=== PATIENT | female | born 1995 ===

== ENCOUNTER 2021-04-28 12:52 | Emergency (ER) | payer OTHER, SELFPAY ==
--- NOTE | ~2021-04-28 | US_ITS ---
EXAMINATION: US VENOUS ULTRASOUND WITH DOPPLER LOWER EXTREMITY, LEFT CLINICAL INFORMATION: Rule out DVT, swelling COMPARISON: None TECHNIQUE: Ultrasound of the deep veins is performed from the hip to the calf with compression sonography and color and pulse Doppler assessment. Spectral analysis with color-flow imaging is performed. FINDINGS: There is normal venous compression and respiratory variation and augmented flow. The visualized common femoral vein, superficial femoral vein, profunda femoral vein, popliteal vein, and the trifurcation region shows no evidence of deep venous thrombosis. There is no significant popliteal fossa cyst. There are multiple small lymph nodes in the left groin. If the patient's symptoms persist, followup ultrasound in 5 days 7 days might be of value to exclude proximal propagation from a non-visualized calf vein. US/US venous duplex LE LT IMPRESSION: No DVT demonstrated in the left lower extremity.
--- NOTE | ~2021-04-28 | XR_ITS ---
EXAMINATION: XR KNEE, LEFT CLINICAL INFORMATION: Pain and swelling post fall COMPARISON: None TECHNIQUE: Four views of the left knee. FINDINGS: Moderate knee effusion. Lateral soft tissue swelling. Normal alignment. No fracture, dislocation or acute osseous abnormalities are seen. XR/XR knee LT 4V IMPRESSION: Moderate knee effusion and soft tissue swelling. No fracture or dislocation is seen.
[2021-04-28 13:02] VITALS: BP 119/79; PULSE 130; RESP 18; TEMP 36.6; O2SAT 98; BMI 18.8
[2021-04-28 13:17] VITALS: PULSE 111; O2SAT 98
--- NOTE | 2021-04-28 13:18 | PC.NURSE ---
recheck hr 111, 02 sat 98% on r/a. pt is lalughing, smiling, eating chips and talking with her sister in w/c in waiting room.
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
[2021-04-28] MEDS: 0.9 % Sodium Chloride 1,000 ML 999 ML IVCONT ×2 (13:54→15:24)
[2021-04-28] MEDS: LORazepam 2 MG/ML VIAL 1 MG IVPUSH (14:01)
[2021-04-28 14:02] LABS: MANUAL DIFF FLAG NO
[2021-04-28] MEDS: Lidocaine HCl 1 % MPF 5 ML VIAL SUBCUT (14:03)
[2021-04-28] MEDS: Lidocaine/Epineph/Tetracaine 3 ML GEL.PF.APP TOPICAL (14:03)
[2021-04-28 14:05] LABS: Basophils Percent Auto 0.2 % (0-2); Eosinophils Absolute Auto 0.3 X10*3/uL (0.0-0.4); Eosinophils Percent Auto 1.4 % (0-4); Hematocrit 40.7 % (37-47); Hemoglobin 13.4 g/dl (12.0-16.0); Imm Gran Abs Auto 0.14 X10*3/uL (0.00-0.03); Imm Gran Pct Auto 0.8 % (0.0-0.4); Lymphocytes Absolute Auto 2.2 X10*3/uL (1.2-4.9); Lymphocytes Percent Auto 12.2 % (20-40); Mean Corpuscular HGB Conc 32.9 g/dl (31.0-35.0); Mean Corpuscular Hemoglobin 29.7 pg (27.0-33.0); Mean Corpuscular Volume 90.2 fL (80-98); Mean Platelet Volume 9.4 fL (9.4-12.3); Monocytes Absolute Auto 1.1 X10*3/uL (0.1-1.2); Monocytes Percent Auto 6.1 % (2-11); Neutrophils Absolute Auto 14.2 X10*3/uL (2.0-8.3); Neutrophils Percent Auto 79.3 % (45-73); Platelet Count 626 X10*3/uL (160-400); Red Blood Count 4.51 X10*6/uL (4.20-5.50); Red Cell Distribution Width 13.8 % (11.0-16.0); White Blood Count 17.9 X10*3/uL (4.8-10.8)
[2021-04-28 14:12] LABS: INTERNATIONAL NORM RATIO 1.3 (0.9-1.1); Prothrombin Time 14.5 SEC (9.9-13.0)
[2021-04-28 14:26] LABS: Alanine Aminotransferase 15 U/L (0-31); Alkaline Phosphatase 95 U/L (39-117); Anion Gap 17 (12-20); Aspartate Amino Transferase 12 U/L (5-31); Bilirubin Direct 0.2 mg/dL (0.0-0.5); Bilirubin Total 0.6 mg/dL (0.0-1.0); Blood Urea Nitrogen 7 mg/dL (9-16); Calcium 9.4 mg/dL (8.4-10.2); Carbon Dioxide 23 mmol/L (22-29); Chloride 104 mmol/L (96-108); Creatinine Clr Calc Pharmacy 113.9; Estimated Glomerular Filt Rate > 60; Glucose Random 93 mg/dL (60-115); Magnesium 2.3 mg/dL (1.6-2.6); Potassium 4.1 mmol/L (3.3-5.1); Sodium 140 mmol/L (135-145); Total Protein 7.7 g/dL (6.5-8.0)
[2021-04-28 14:27] LABS: COVID-19 Test Negative (Negative); IDNOW Serial# 9DD0AD1C
[2021-04-28 14:44] LABS: Lactic Acid 1.4 mmol/L (0.5-2.0)
[2021-04-28] MEDS: Clindamycin Phosphate/D5W 900 MG/50 ML PIGGYBACK 50 MG IV (15:14)
[2021-04-28] MEDS: Piperacillin Sodium/Tazobactam 3.375 GM in 0.9 % Sodium Chloride 50 ML IV (15:18)
[2021-04-28 15:19] LABS: C Reactive Protein 14.02 mg/dL (< or = 0.50)
[2021-04-28 15:47] VITALS: BP 130/79; PULSE 106; RESP 16; O2SAT 99
[2021-04-28] MEDS: vancomycin HCL 750 MG in 0.9 % Sodium Chloride 250 ML 265 MG IV (15:47)
[2021-04-28 15:48] LABS: Erythrocyte Sedimentation Rate 81 MM/HR (0-20)
[2021-04-28] MEDS: oxyCODONE HCl Immed Release 5 MG TABLET PO (16:15)
--- NOTE | 2021-04-28 16:54 | PC.NURSE ---
ATTEMPTED TO CALL [facility] FOR REPORT ON PATIENT TRANSFER NO ANSWER ON ATTEMPTED CALL PATIENT LEFT VIA EMS APPROXIMATELY [id number]
[2021-05-02 21:22] LABS: Lyme Abs Screen <0.90 index
== END 2021-04-28 16:59 | disposition short-term general hospital (02) ==
PROVIDERS: Emergency Provider Emergency Medicine; PCP Hospitalist
DX: M60.862 Other myositis, left lower leg (principal); D72.829 Elevated white blood cell count, unspecified; R79.82 Elevated C-reactive protein (CRP); F41.9 Anxiety disorder, unspecified; Z20.822 Contact with and (suspected) exposure to COVID-19
CPT/HCPCS: 36415; 73564; 80048; 80076; 82550; 83605; 83735; 85025; 85610; 85652; 85730; 86140; 86617; 86618; 87040; 87476; 87635; 93971; 96361; 96365; 96368; 96375; 99285; 99291; J2060; J2543; J3370

== ENCOUNTER → 2021-09-10 09:35 | Outpatient (BNVA) | payer OTHER, SELFPAY | PROVIDERS: PCP Hospitalist; Visit Provider Advanced Practice Midwife | DX: Z32.01 Encounter for pregnancy test, result positive (principal) | CPT/HCPCS: 81025; 99202 ==

== ENCOUNTER 2021-09-22 14:40 | Outpatient (REF) | payer OTHER, SELFPAY ==
--- NOTE | ~2021-09-22 | US_ITS ---
EXAMINATION: ULTRASOUND OB LIMITED CLINICAL INFORMATION: Positive test. Unknown LMP. COMPARISON: None TECHNIQUE: Transabdominal OB ultrasound FINDINGS: There is a single viable intrauterine fetus in cephalic position. heart rate is 158 bpm. There is an anterior placenta. measurements: BPD 3.6 cm suggesting gestational age 17 weeks 2 days OFD 4.7 cm suggesting gestational age 17 weeks 2 days Head circumference 14 cm suggesting gestational age 17 weeks 2 days Abdominal circumference 10.9 cm suggesting gestational age 16 weeks 6 days Femur length 2.3 cm suggesting gestational age 17 weeks 1 day. From today's measurements, gestational age is estimated at 17 weeks 1 day with estimated date of delivery of 03/01/2022. Dedicated survey was not performed. The maternal ovaries are normal. There is no fluid in the maternal pelvis. US/US OB limited IMPRESSION: Single viable intrauterine fetus. From today's measurements, gestational age is estimated at 17 weeks 1 day with estimated date of delivery of 03/13/2022.
== END 2021-09-22 14:41 | disposition home or self-care (01) ==
LOC: HO.US 14:40
PROVIDERS: PCP Hospitalist; Visit Provider Advanced Practice Midwife
DX: Z32.01 Encounter for pregnancy test, result positive (principal)
CPT/HCPCS: 76815

== ENCOUNTER → 2021-09-23 13:35 | Outpatient (BNVA) | payer OTHER, SELFPAY | PROVIDERS: PCP Hospitalist; Visit Provider Advanced Practice Midwife | DX: O99.322 Drug use complicating pregnancy, second trimester (principal); F12.20 Cannabis dependence, uncomplicated; Z3A.17 17 weeks gestation of pregnancy; Z87.891 Personal history of nicotine dependence; Z83.3 Family history of diabetes mellitus | CPT/HCPCS: 99212 ==

== ENCOUNTER 2021-10-03 09:02 | Outpatient (REF) | payer OTHER, SELFPAY ==
--- NOTE | ~2021-10-03 | US_ITS ---
EXAMINATION: US OBSTETRICAL CLINICAL INFORMATION: 26-year-old at 18.5 weeks of gestation Screening for anomaly COMPARISON: 04/28/2021 TECHNIQUE: Real-time transabdominal ultrasound was performed using C1-5 megahertz transducer. FINDINGS: A single, active, fetus is seen in breech presentation. The placenta is anterior without previa, and the amniotic fluid volume is wnl. MEASUREMENTS: 1. Biparietal Diameter: 3.84 cm; 17.5 wks 2. Occipital Frontal Diameter: 5.2 cm 3. Head Circumference: 14.5 cm; 17.5 wks 4. Abdominal Circumference: 12.1 cm; 17.6 wks 5. Femur Length: 2.5 cm; 17.5 wks 6. Humerus Length: 2.4 cm; 17.4 wks 7. Tibia Length: 2.1 cm; 17.4 wks 8. Ulna Length: 2.2 cm; 17.5 wks 9. Lateral ventricle: 0.73 cm 10. Cerebellum: 1.85 cm; 19.2 wks 11. Cisterna Magna: 0.29 cm 12. Nuchal Fold: 3.52 mm 13. Heart Rate: 147 beats per minute Rt ovary: normal Lt ovary: normal Cervical length 4.6 cm on T/A. GESTATIONAL AGE: 1. Established GA: 18.5 wks 2. GA from [facility]: 17.6 wks ESTIMATED DATE OF DELIVERY: 1. Established MICHELLE: 03/01/2022 2. MICHELLE from [facility]: 03/07/2022 ANATOMY: The visualized anatomy includes but not limited to: 1. Cranium: Normal 2. Intracranial anatomy: cavum septum pellucidi, lateral ventricles, choroid plexus, cerebellum, posterior fossa, third and fourth ventricles. 3. face: orbits, lip/palate, profile, nasal bone 4. Heart: four-chamber view of the heart, ventricular septum, foramen ovale, pulmonary vein, left and right outflow tracts, three-vessel view, 3 vessel trachea view, aortic and ductal arches, situs.. 5. Diaphragm: Normal 6. Abdominal wall: Normal 7. Cord Insertion: Normal 8. Spine: Cervical, thoracic, lumbar, sacral. 9. Stomach: Normal size and shape 10. Right Kidney: Normal 11. Left Kidney: Normal 12. 3 vessel cord: Normal 13. Upper extremity: Open hands, fifth digit. 14. Lower extremity: Tibia, fibula, bilateral feet. 15. Bladder: Normal 16. Genitalia: Female, patient aware US/US OB /maternal detail IMPRESSION: 1. Single, living, intrauterine with appropriate biometry. 2. Normal survey DISCUSSION: I reviewed today's ultrasound findings. We discussed the limitations of ultrasound in diagnosing aneuploidy and other congenital abnormalities. I reviewed the differences between screening test and diagnostic test. Amniocentesis was discussed and declined. She was informed that the baseline incidence of congenital abnormalities is approximately 3-5%. Not all these conditions are diagnosable in utero. RECOMMENDATIONS: 1. No further follow-up is been scheduled. Thank you for allowing me to participate in her care. Total time 20 minutes. The time spent was devoted to counseling the patient about the disease and diagnosis, coordinating care including reviewing her records, pertinent lab data and studies, as well as discussing diagnostic evaluation and workup, plan therapeutic interventions and future disposition of care. This includes any additional research needed to obtain further information in formulating the plan of care of this patient. This note was generated with a voice recognition program. Please excuse any errors which may have been overlooked during my review of this note. Sometimes these errors may affect the content or meaning of a given sentence.
== END 2021-10-03 09:03 | disposition home or self-care (01) ==
LOC: HO.US 09:02
PROVIDERS: PCP Hospitalist; Visit Provider Advanced Practice Midwife
DX: Z32.01 Encounter for pregnancy test, result positive (principal)
CPT/HCPCS: 76811

== ENCOUNTER 2021-10-08 11:02 | Outpatient (REF) | payer OTHER, SELFPAY ==
[2021-10-09 03:16] LABS: CT PCR DETECTED (Not Detect.); NG PCR NOT DETECTED (Not Detect.)
[2021-10-09 11:06] LABS: BV Int Neg Control Negative (Negative); BV Int Pos Control Positive (Positive)
== END 2021-10-08 11:03 | disposition home or self-care (01) ==
LOC: HO.LAB 11:02
PROVIDERS: PCP Hospitalist; Visit Provider Advanced Practice Midwife
DX: Z34.92 Encounter for supervision of normal pregnancy, unspecified, second trimester (principal); Z43.1 Encounter for attention to gastrostomy; Z87.891 Personal history of nicotine dependence; Z83.3 Family history of diabetes mellitus; Z3A.19 19 weeks gestation of pregnancy
CPT/HCPCS: 87480; 87491; 87510; 87591; 87660; 88142; 99212

== ENCOUNTER 2021-10-11 10:28 | Emergency (ER) | payer OTHER, SELFPAY ==
[2021-10-11 10:34] VITALS: BP 115/70; PULSE 93; RESP 17; TEMP 36.6; O2SAT 99; BMI 20.8
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
[2021-10-11] MEDS: Azithromycin 500 MG TABLET 1000 MG PO (13:14)
[2021-10-11] MEDS: cefTRIAXone sodium 500 MG VIAL IM (13:20)
== END 2021-10-11 13:23 | disposition home or self-care (01) ==
PROVIDERS: Emergency Provider Emergency Medicine; PCP Hospitalist
DX: O98.312 Other infections with a predominantly sexual mode of transmission complicating pregnancy, second trimester (principal); A56.8 Sexually transmitted chlamydial infection of other sites; Z3A.20 20 weeks gestation of pregnancy
CPT/HCPCS: 96372; 99283; 99284; J0696

== ENCOUNTER → 2021-11-07 10:52 | Outpatient (BNVA) | payer OTHER, SELFPAY | PROVIDERS: PCP Hospitalist; Visit Provider Advanced Practice Midwife | DX: O98.812 Other maternal infectious and parasitic diseases complicating pregnancy, second trimester (principal); A74.9 Chlamydial infection, unspecified; O99.322 Drug use complicating pregnancy, second trimester; F12.90 Cannabis use, unspecified, uncomplicated; Z3A.23 23 weeks gestation of pregnancy; Z83.3 Family history of diabetes mellitus; Z87.891 Personal history of nicotine dependence | CPT/HCPCS: 81003; 99212 ==

== ENCOUNTER 2021-11-10 14:08 | Outpatient (REF) | payer OTHER, SELFPAY ==
[2021-11-10 14:43] LABS: Hematocrit 37.6 % (37.0-47.0); Hemoglobin 12.9 g/dl (12.0-16.0); Mean Corpuscular HGB Conc 34.3 g/dl (31.0-35.0); Mean Corpuscular Hemoglobin 31.1 pg (27.0-33.0); Mean Corpuscular Volume 90.6 fL (80.0-98.0); Mean Platelet Volume 10.6 fL (9.4-12.3); Platelet Count 235 X10*3/uL (160-400); Red Blood Count 4.15 X10*6/uL (4.20-5.50); Red Cell Distribution Width 13.4 % (11.0-16.0); White Blood Count 12.5 X10*3/uL (4.8-10.8)
[2021-11-10 15:30] LABS: Syphilis Screen Nonreactive (Nonreactive)
[2021-11-10 15:33] LABS: Amphetamine Screen Urine Not Detected (Not Detect); Barbiturates, Urine Not Detected (Not Detect); Benzodiazepines Screen Urine Not Detected (Not Detect); Cannabinoid Screen Urine POSITIVE (Not Detect); Cocaine Screen Urine Not Detected (Not Detect); Fentanyl, urine Not Detected (Not Detect); Opiate Screen Urine Not Detected (Not Detect); Phencyclidine Screen Urine Not Detected (Not Detect)
[2021-11-11 04:26] LABS: HIV AB/AG Nonreactive (Nonreactive); HIV Num 1 0.07 S/CO (0.00-0.99); ~HepC Num1 0.15 S/CO (0.00-0.79); ~Hepatitis C Antibody Nonreactive (Nonreactive)
[2021-11-11 04:28] LABS: HBsAGNum1 0.24 S/CO (0.00-0.99); Hepatitis B Surface Antigen Negative (Negative)
[2021-11-11 21:02] LABS: Rubella IgG Antibody 2.73 Index
== END 2021-11-10 14:09 | disposition home or self-care (01) ==
LOC: HO.LAB 14:08
PROVIDERS: PCP Hospitalist; Visit Provider Advanced Practice Midwife
DX: Z32.01 Encounter for pregnancy test, result positive (principal); O23.40 Unspecified infection of urinary tract in pregnancy, unspecified trimester; N39.0 Urinary tract infection, site not specified; B96.89 Other specified bacterial agents as the cause of diseases classified elsewhere; Z67.41 Type O blood, Rh negative; Z3A.00 Weeks of gestation of pregnancy not specified
CPT/HCPCS: 80307; 85027; 86762; 86780; 86787; 86803; 86850; 86900; 86901; 87086; 87340; 87389

== ENCOUNTER 2021-12-09 13:05 | Outpatient (REF) | payer OTHER, SELFPAY ==
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
== END 2021-12-09 13:06 | disposition home or self-care (01) ==
LOC: HO.SH 13:05
PROVIDERS: Visit Provider Hospitalist
DX: Z01.118 Encounter for examination of ears and hearing with other abnormal findings (principal); H90.A12 Conductive hearing loss, unilateral, left ear with restricted hearing on the contralateral side
CPT/HCPCS: 92557; 92567

== ENCOUNTER → 2021-12-17 08:44 | Outpatient (BNVA) | payer OTHER, SELFPAY | PROVIDERS: Visit Provider Advanced Practice Midwife | DX: Z34.03 Encounter for supervision of normal first pregnancy, third trimester (principal); Z3A.29 29 weeks gestation of pregnancy | CPT/HCPCS: 81003; 99212 ==

== ENCOUNTER 2021-12-31 09:52 | Outpatient (REF) | payer OTHER, SELFPAY ==
[2021-12-31 11:20] LABS: Hematocrit 36.6 % (37.0-47.0); Hemoglobin 12.3 g/dl (12.0-16.0); Mean Corpuscular HGB Conc 33.6 g/dl (31.0-35.0); Mean Corpuscular Hemoglobin 29.8 pg (27.0-33.0); Mean Corpuscular Volume 88.6 fL (80.0-98.0); Mean Platelet Volume 10.3 fL (9.4-12.3); Platelet Count 276 X10*3/uL (160-400); Red Blood Count 4.13 X10*6/uL (4.20-5.50); Red Cell Distribution Width 13.1 % (11.0-16.0); White Blood Count 13.3 X10*3/uL (4.8-10.8)
[2021-12-31 12:04] LABS: ~HepC Num1 0.12 S/CO (0.00-0.79); ~Hepatitis C Antibody Nonreactive (Nonreactive)
[2021-12-31 12:13] LABS: Syphilis Screen Nonreactive (Nonreactive)
[2021-12-31 13:00] LABS: HIV AB/AG Nonreactive (Nonreactive); HIV Num 1 0.08 S/CO (0.00-0.99); Hepatitis B Surface Antigen Negative (Negative)
[2021-12-31 16:31] LABS: CT PCR NOT DETECTED (Not Detect.); NG PCR NOT DETECTED (Not Detect.)
== END 2021-12-31 09:53 | disposition home or self-care (01) ==
LOC: HO.LAB 09:52
PROVIDERS: PCP Hospitalist; Visit Provider Advanced Practice Midwife
DX: O98.813 Other maternal infectious and parasitic diseases complicating pregnancy, third trimester (principal); Z3A.31 31 weeks gestation of pregnancy
CPT/HCPCS: 36415; 81003; 85027; 86780; 86803; 87340; 87389; 87491; 87591; 99212

== ENCOUNTER → 2022-01-16 10:35 | Outpatient (BNVA) | payer OTHER, SELFPAY | PROVIDERS: PCP Hospitalist; Visit Provider Advanced Practice Midwife | DX: O36.5930 Maternal care for other known or suspected poor fetal growth, third trimester, not applicable or unspecified (principal); Z23 Encounter for immunization | CPT/HCPCS: 90471; 90715; 99212 ==

== ENCOUNTER 2022-01-23 13:12 | Outpatient (REF) | payer OTHER, SELFPAY ==
--- NOTE | ~2022-01-23 | US_ITS ---
EXAMINATION: OBSTETRICAL ULTRASOUND, Follow up HISTORY: 26-year-old at 12.5 weeks of gestation Size less than dates COMPARISON: 10/03/2021 TECHNIQUE: Real time transabdominal imaging with color and M-mode Doppler. PRESENTATION: Vertex PLACENTA LOCATION: Anterior without previa AMNIOTIC FLUID: JARAD 10.6 cm MEASUREMENTS: 1. Biparietal Diameter: 8.3 cm; 33.2 wks 2. Head Circumference: 30.9 cm; 34.4 wks 3. Abdominal Circumference: 29.1 cm; 23.1 wks 4. Femur Length: 6.4 cm; 33.1 wks 5. Heart Rate: 143 beats per minute WEIGHT: EFW: 2158 grams (4 lbs 12 oz) -- 12 %. BIOPHYSICAL PROFILE: Motion: 2 Tone: 2 Breathin Amniotic Fluid: 2 Total score: 8/8 UA Doppler: S/D2.5 GESTATIONAL AGE: 1. Established GA: 34.5 wks 2. GA from AUA: 33.4 wks ESTIMATED DATE OF DELIVERY: 1. Established MICHELLE: 03/01/2022 2. MICHELLE from AUA: 03/09/2022 US/US OB velocimetry umbilical ar IMPRESSION: 1. A single active fetus is in vertex presentation 2. Size equals dates (EFW 12%) 3. Reassuring biophysical profile 4. Normal SD ratio in the umbilical artery. I reviewed today's findings and the limitations of ultrasound and estimating weights. The majority of the fetuses EFW is close to or below the 10th percentile are constitutionally small but healthy fetuses who are growing to their full genetic potential. Approximately 30% may be experiencing placental insufficiency. Often it can be difficult to distinguish the 2 in utero. I informed her that interval growth evaluation will be helpful in determining whether the fetus is constitutionally small or experiencing growth restriction. testing is reassuring. According to patient, she was a small baby and weight: 5 pounds at full-term. A 3 week follow-up the has been scheduled. Thank you very much for this referral. Total time 30 minutes. The time spent was devoted to counseling the patient about the disease and diagnosis, coordinating care including reviewing her records, pertinent lab data and studies, as well as discussing diagnostic evaluation and workup, plan therapeutic interventions and future disposition of care. This includes any additional research needed to obtain further information in formulating the plan of care of this patient. This note was generated with a voice recognition program. Please excuse any errors which may have been overlooked during my review of this note. Sometimes these errors may affect the content or meaning of a given sentence.
== END 2022-01-23 13:13 | disposition home or self-care (01) ==
LOC: HO.US 13:12
PROVIDERS: PCP Hospitalist; Visit Provider Advanced Practice Midwife
DX: O36.5990 Maternal care for other known or suspected poor fetal growth, unspecified trimester, not applicable or unspecified (principal)
CPT/HCPCS: 76816; 76820

== ENCOUNTER 2022-02-02 14:04 | Outpatient (REF) | payer OTHER, SELFPAY ==
[2022-02-03 05:54] LABS: CT PCR NOT DETECTED (Not Detect.)
[2022-02-03 05:55] LABS: NG PCR NOT DETECTED (Not Detect.)
== END 2022-02-02 14:05 | disposition home or self-care (01) ==
LOC: HO.LAB 14:04
PROVIDERS: Visit Provider Advanced Practice Midwife
DX: Z01.419 Encounter for gynecological examination (general) (routine) without abnormal findings (principal); O26.843 Uterine size-date discrepancy, third trimester; O98.813 Other maternal infectious and parasitic diseases complicating pregnancy, third trimester; O99.333 Smoking (tobacco) complicating pregnancy, third trimester; A74.9 Chlamydial infection, unspecified; F17.210 Nicotine dependence, cigarettes, uncomplicated; Z3A.36 36 weeks gestation of pregnancy
CPT/HCPCS: 81003; 87081; 87147; 87491; 87591; 99212

== ENCOUNTER → 2022-02-11 13:58 | Outpatient (BNVA) | payer OTHER, SELFPAY | PROVIDERS: Visit Provider Advanced Practice Midwife | DX: O09.33 Supervision of pregnancy with insufficient antenatal care, third trimester (principal); O26.843 Uterine size-date discrepancy, third trimester; O99.343 Other mental disorders complicating pregnancy, third trimester; F32.A Depression, unspecified; O99.323 Drug use complicating pregnancy, third trimester; F12.90 Cannabis use, unspecified, uncomplicated; Z3A.37 37 weeks gestation of pregnancy; Z87.891 Personal history of nicotine dependence | CPT/HCPCS: 99212 ==

== ENCOUNTER 2022-02-13 13:09 | Outpatient (REF) | payer OTHER, SELFPAY ==
--- NOTE | ~2022-02-13 | US_ITS ---
EXAMINATION: OBSTETRICAL ULTRASOUND, Follow up HISTORY: 26-year-old at 37.5 weeks of gestation growth restriction COMPARISON: 01/23/2022 TECHNIQUE: Real time transabdominal imaging with color and M-mode Doppler. PRESENTATION: Vertex PLACENTA LOCATION: Anterior without previa AMNIOTIC FLUID: JARAD 10.1 cm MEASUREMENTS: 1. Biparietal Diameter: 8.8 cm; 35.4 wks 2. Head Circumference: 32.4 cm; 36.6 wks 3. Abdominal Circumference: 31.3 cm; 35.2 wks 4. Femur Length: 6.9 cm; 35.2 wks 5. Heart Rate: 138 beats per minute WEIGHT: EFW: 2668 grams (5 lbs 14 oz) -- 10 %. BIOPHYSICAL PROFILE: Motion: 2 Tone: 2 Breathin Amniotic Fluid: 2 Total score: 8/8 UA Doppler showed SD ratio of 2.4 GESTATIONAL AGE: 1. Established GA: 37.5 wks 2. GA from AUA: 35.6 wks ESTIMATED DATE OF DELIVERY: 1. Established MICHELLE: 03/01/2022 2. MICHELLE from AUA: 03/14/2022 US/US OB velocimetry umbilical ar IMPRESSION: 1. A single active fetus is in vertex presentation 2. Size equals dates, EFW 10% 3. Reassuring BPP and JARAD 4. Normal SD ratio in the umbilical artery I reviewed today's findings. Although the EFW corresponds to 10th percentile, compared to the prior exam, there has been appropriate interval growth. I reviewed the limitations of ultrasound and estimating weights. testing is reassuring. Continue with the weekly monitoring and expectant management until approximately 39 weeks of gestation. Thank you very much for this referral. Total time 20 minutes. The time spent was devoted to counseling the patient about the disease and diagnosis, coordinating care including reviewing her records, pertinent lab data and studies, as well as discussing diagnostic evaluation and workup, plan therapeutic interventions and future disposition of care. This includes any additional research needed to obtain further information in formulating the plan of care of this patient. This note was generated with a voice recognition program. Please excuse any errors which may have been overlooked during my review of this note. Sometimes these errors may affect the content or meaning of a given sentence.
== END 2022-02-13 13:10 | disposition home or self-care (01) ==
LOC: HO.US 13:09
PROVIDERS: Visit Provider Advanced Practice Midwife
DX: O26.843 Uterine size-date discrepancy, third trimester (principal); O98.913 Unspecified maternal infectious and parasitic disease complicating pregnancy, third trimester; Z3A.37 37 weeks gestation of pregnancy
CPT/HCPCS: 76816; 76820

== ENCOUNTER → 2022-02-17 09:39 | Outpatient (BNVA) | payer OTHER, SELFPAY | PROVIDERS: Visit Provider Advanced Practice Midwife | DX: O36.5930 Maternal care for other known or suspected poor fetal growth, third trimester, not applicable or unspecified (principal); Z3A.38 38 weeks gestation of pregnancy | CPT/HCPCS: 59025; 81003; 99212 ==

== ENCOUNTER 2022-02-20 09:26 | Outpatient (REF) | payer OTHER, SELFPAY ==
--- NOTE | ~2022-02-20 | US_ITS ---
EXAMINATION: US OBSTETRICAL (BIOPHYSICAL PROFILE) CLINICAL INFORMATION: 26-year-old at 37.5 weeks of gestation FGR COMPARISON: 02/13/2022 TECHNIQUE: Biophysical profile is performed over 30 minutes with assessment of breathing, gross body movement, tone, and qualitative amniotic fluid volume. FINDINGS: POSITION: Cephalic PLACENTA: Anterior without previa AMNIOTIC FLUID INDEX: 11.1 cm CARDIAC ACTIVITY: 143 beats per minute BIOPHYSICAL PROFILE: Motion: 2 Tone: 2 Breathin Amniotic Fluid: 2 The total biophysical score is 8/8 UA Doppler: S/D2.6 US/US OB biophysical profile IMPRESSION: 1. Single intrauterine gestation in vertex position. 2. Reassuring BPP and JARAD 3. Normal SD ratio in the UA I reviewed today's findings and gave her reassurance. She is to return next week for an interval growth evaluation. Plan for delivery at approximately 39-40 weeks. Thank you for allowing me to participate in her care. Total time 20 minutes. The time spent was devoted to counseling the patient about the disease and diagnosis, coordinating care including reviewing her records, pertinent lab data and studies, as well as discussing diagnostic evaluation and workup, plan therapeutic interventions and future disposition of care. This includes any additional research needed to obtain further information in formulating the plan of care of this patient. This note was generated with a voice recognition program. Please excuse any errors which may have been overlooked during my review of this note. Sometimes these errors may affect the content or meaning of a given sentence.
--- NOTE | ~2022-02-20 | US_ITS ---
EXAMINATION: US OBSTETRICAL (BIOPHYSICAL PROFILE) CLINICAL INFORMATION: 26-year-old at 37.5 weeks of gestation FGR COMPARISON: 02/13/2022 TECHNIQUE: Biophysical profile is performed over 30 minutes with assessment of breathing, gross body movement, tone, and qualitative amniotic fluid volume. FINDINGS: POSITION: Cephalic PLACENTA: Anterior without previa AMNIOTIC FLUID INDEX: 11.1 cm CARDIAC ACTIVITY: 143 beats per minute BIOPHYSICAL PROFILE: Motion: 2 Tone: 2 Breathin Amniotic Fluid: 2 The total biophysical score is 8/8 UA Doppler: S/D2.6 US/US OB velocimetry umbilical ar IMPRESSION: 1. Single intrauterine gestation in vertex position. 2. Reassuring BPP and JARAD 3. Normal SD ratio in the UA I reviewed today's findings and gave her reassurance. She is to return next week for an interval growth evaluation. Plan for delivery at approximately 39-40 weeks. Thank you for allowing me to participate in her care. Total time 20 minutes. The time spent was devoted to counseling the patient about the disease and diagnosis, coordinating care including reviewing her records, pertinent lab data and studies, as well as discussing diagnostic evaluation and workup, plan therapeutic interventions and future disposition of care. This includes any additional research needed to obtain further information in formulating the plan of care of this patient. This note was generated with a voice recognition program. Please excuse any errors which may have been overlooked during my review of this note. Sometimes these errors may affect the content or meaning of a given sentence.
== END 2022-02-20 09:27 | disposition home or self-care (01) ==
LOC: HO.US 09:26
PROVIDERS: Visit Provider Advanced Practice Midwife
DX: O26.843 Uterine size-date discrepancy, third trimester (principal); Z3A.37 37 weeks gestation of pregnancy
CPT/HCPCS: 76819; 76820

== ENCOUNTER 2022-04-10 12:21 | Outpatient (REF) | payer OTHER, SELFPAY ==
[2022-04-11 10:22] LABS: CT PCR NOT DETECTED (Not Detect.); NG PCR NOT DETECTED (Not Detect.)
[2022-04-11 10:27] LABS: BV Int Neg Control Negative (Negative); BV Int Pos Control Positive (Positive)
== END 2022-04-10 12:22 | disposition home or self-care (01) ==
LOC: HO.LAB 12:21
PROVIDERS: Visit Provider Advanced Practice Midwife
DX: N89.8 Other specified noninflammatory disorders of vagina (principal); Z20.2 Contact with and (suspected) exposure to infections with a predominantly sexual mode of transmission
CPT/HCPCS: 87480; 87491; 87510; 87591; 87660; 99212

== ENCOUNTER 2022-09-05 04:59 | Emergency (ER) | payer OTHER, SELFPAY ==
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
[2022-09-05] MEDS: LORazepam 1 MG TABLET 2 MG PO (05:10)
[2022-09-05 05:24] VITALS: BP 111/71; PULSE 80; RESP 18; O2SAT 97; BMI 18.9
[2022-09-05] MEDS: diphenhydrAMINE HCL 50 MG/ML VIAL IM (05:45)
[2022-09-05] MEDS: Haloperidol Lactate 5 MG/ML VIAL IM (05:45)
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
--- OUTSIDE RECORDS SUMMARY | 2022-09-05 06:02 | XMS_ITS | Continuity of Care Document ---
:1995 Author Organization [facility] Address [address] [place] [address]- Care Team Providers Name Role Phone Not on Staff, PCP Primary Care Physician Unavailable Encounter [facility] Date(s): 03/11/20 - 03/27/[address] [address]- [facility] Encounter Diagnosis Head injury with skull fracture (Final) - 03/11/20 Fracture of mandible, multiple sites (Final) - 03/11/20 Discharge Disposition: Disch/Trans to IP Rehab or unit w/in Hos Attending Physician: Brian Davila MD Admitting Physician: Brian Davila MD Referring Physician: Not on Staff, Referring MD Allergies, Adverse Reactions, Alerts Substance Reaction Severity Status NKA Active Medications aspirin 81 mg oral tablet, chewable 81 mg, 1, tablet, G Tube, Daily, Refills 0, Maintenance, 03/27/20 14:14:00 EDT Start Date: 03/27/20 Status: OrderedBacitracin Topical Oint 1 applicator, Topically, 2 times a day, 0 Refills, Maintenance, Ointment Start Date: 03/27/20 Status: Orderedbisacodyl 10 mg rectal suppository 1 supp = 10 mg, Rectally, 2 times a day, PRN Constipation, 0 Refills, Maintenance, 03/27/20 14:15:00EDT, Suppository Start Date: 03/27/20 Status: OrderedcloNIDine 0.1 mg oral tablet 0.1 mg, 1, tablet, By Mouth, Every 6 hours, Refills 0, Maintenance, 03/27/20 14:15:00 EDT Start Date: 03/27/20 Status: OrdereddiphenhydrAMINE 25 mg oral tablet 1 tablet = 25 mg, By Mouth, Every 4 hours, PRN Itch, 0 Refills, Maintenance, 03/27/20 14:15:00 EDT, Tablet Start Date: 03/27/20 Status: Ordereddocusate sodium 150 mg/15 ml oral liquid 10 mL = 100 mg, By Mouth, 2 times a day, PRN Constipation, 0 Refills, Maintenance, 03/27/20 14:15:00EDT, Liquid Start Date: 03/27/20 Status: OrderedDuoneb Inhalation Solution 1, vials, Neb, 4 times a day, Refills 0, Maintenance, 03/27/20 14:14:00 EDT, Inhalation Solution Start Date: 03/27/20 Status: Orderedfolic acid 1 mg oral tablet 1 mg, 1, tablet, G Tube, Daily, Refills 0, Maintenance, 03/27/20 14:15:00 EDT Start Date: 03/27/20 Status: Orderedibuprofen 600 mg oral tablet 400 mg, 0.6666, tablet, G Tube, Every 6 hours, PRN, Refills 0, Maintenance, Pain , Severe, 03/27/20 14:15:00 EDT Start Date: 03/27/20 Status: Orderedmelatonin 10 mg oral tablet, disintegrating G Tube, Daily at bedtime, 0 Refills, Maintenance, 03/27/20 14:15:00 EDT, DIS Tablet Start Date: 03/27/20 Status: OrderedMilk of Magnesia Liquid 30 mL, By Mouth, 2 times a day, PRN Constipation, 0 Refills, Maintenance, 03/27/20 14:15:00 EDT, Suspension Start Date: 03/27/20 Status: OrderedMineral Oil /Petrolatum Ophth 1 applicator, Eyes, Both, Every 4 hours, 0 Refills, Maintenance, 03/27/20 14:15:00 EDT, Ophth Ointment Start Date: 03/27/20 Status: OrderedMultivitamin Tablet 1 tablet, G Tube, Daily, 0 Refills, Maintenance, 03/27/20 14:15:00 EDT, Tablet Start Date: 03/27/20 Status: OrderedPHENobarbital 30 mg oral tablet 2 tablet = 60 mg, G Tube, Every 12 hours, 0 Refills, Maintenance, 03/27/20 14:15:00 EDT, Tablet Start Date: 03/27/20 Status: Orderedthiamine 100 mg oral tablet 100 mg, 1, tablet, G Tube, Daily, Refills 0, Maintenance, 03/27/20 14:15:00 EDT Start Date: 03/27/20 Status: OrderedTobramycin 0.3% Ophth 1 drops, Eyes, Both, Every 4 hours, 0 Refills, Maintenance, 03/27/20 14:15:00 EDT, Ophth Solution Start Date: 03/27/20 Status: OrderedTylenol 325 mg oral tablet 650 mg, 2, tablet, By Mouth, Every 4 hours, Refills 0, Maintenance, 03/27/20 14:14:00 EDT Start Date: 03/27/20 Status: Ordered Procedures Procedure Date Related Diagnosis Body Site Status Bronchoscopy, rigid or flexible, 03/12/20 Completed including fluoroscopic guidance, when performed; with transendoscopic endobronchial ultrasound (EBUS) during bronchoscopic diagnostic or therapeutic intervention(s) for peripheral lesion(s) (List separately in addition to Results Orders for Microbiology Reports Name Date Lower Resp Tract Culture w/ Gram Smear 03/18/20 Blood Culture 03/18/20 Blood Culture #2 03/18/20 Microbiology Reports TEST:Blood Culture, Second Order STATUS:Auth (Verified) BODY SITE: SOURCE:Blood COLLECTED DATE/TIME:03/18/20 3:25 PMBlood Culture, Second Order SPECIMEN DESCRIPTION : BLOOD RT ARM SPECIAL REQUESTS : NONE CULTURE : NO GROWTH 5 DAYS. REPORT STATUS : FINAL 03/23/2020TEST:Lower Respiratory Tract Culture STATUS:Auth (Verified) BODY SITE: SOURCE:BAL (M COLLECTED DATE/TIME:03/18/20 2:15 PMLower Respiratory Tract Culture SPECIMEN DESCRIPTION : BAL (MINI) LUNGMB SPECIAL REQUESTS : NONE GRAM STAIN : NO CELLS OR ORGANISMS SEEN CULTURE : 16,000 CFU/ML ACINETOBACTER CALCOACETICUS BETHANY. ANITRATUS REPORT STATUS : FINAL 03/20/2020 ORGANISM 16,000 CFU/ML ACINETOBACTER CALCOACETICUS BETHANY. ANITRATUS METHOD MIN. INHIB. CONC. (MCG/ML) CEFEPIME SUSCEPTIBLE CEFTAZIDIME SUSCEPTIBLE CIPROFLOXACIN SUSCEPTIBLE GENTAMICIN SUSCEPTIBLE LEVOFLOXACIN SUSCEPTIBLE TRIMETH/SULFAMETHOX SUSCEPTIBLE MEROPENEM SUSCEPTIBLE TETRACYCLINE SUSCEPTIBLE AMPICILLIN/SULBACTAM SUSCEPTIBLETEST:Blood Culture STATUS:Auth (Verified) BODY SITE: SOURCE:Blood COLLECTED DATE/TIME:03/18/20 2:08 PMBlood Culture SPECIMEN DESCRIPTION : BLOOD NO SITE SPECIAL REQUESTS : NONE CULTURE : NO GROWTH 5 DAYS. REPORT STATUS : FINAL 03/23/2020Radiology Reports (Most Recent Ten) Exam Date Time Procedure Performing Provider Status 03/22/20 6:35 PM Abdomen AP Ileana Alberto; Auth (Verifi ed) Notes:(Abdomen AP) Reason For Exam: PainRESULT: XR Abdomen AP XR Abdomen AP Reason: Pain; Clinical Question(s): Free Air COMPARISON: None. FINDINGS: Gastrostomy with distal tip in stomach. Enteric contrast from previous modified barium swallow is seen throughout the large bowel. Normal bowel gas pattern. No abnormal stool retention. No abnormal calcifications. No acute bony abnormalities. IMPRESSION: Well-positioned PEG tube. Nonspecific nonobstructive bowel gas pattern. Free air cannot be excluded on a supine only study. WSN: [id number] Ordering Physician: Kandace Miller Dictated By: Leroy Toro MD Dictated Date/Time: 03/22/20 6:56 pm Reviewed By: Leroy Toro MD Signed By: Leroy Toro MD Signed Date/Time: 03/22/20 6:56 pm Transcribed By: SIXTO Transcribed Date/Time: 03/22/20 6:55 pm Exam Date Time Procedure Performing Provider Status 03/22/20 6:35 PM Chest Portable Ileana Alberto; Auth (Verifi ed) Notes:(Chest Portable) Reason For Exam: PostopRESULT: Chest Portable Chest Portable Reason: Postop; Clinical Question(s): Other:; free air COMPARISON: 03/21/2020 at 5:34 AM. FINDINGS: LINES AND TUBES: Interval placement of tracheostomy with cannula well-positioned at the thoracic inlet. LUNGS AND PLEURA: Low lung volumes with mild basilar atelectasis, right greater than left. Lungs are otherwise clear with no consolidation. No pleural effusion. No pneumothorax. HEART, MEDIASTINUM AND ARPAN: Heart is normal in size. Normal mediastinal and hilar contour. BONES AND SOFT TISSUES: No acute abnormality. No free air. IMPRESSION: Placement of tracheostomy. Low lung volumes with bibasilar atelectasis. No free air. WSN: [id number] Ordering Physician: Kandace Miller Dictated By: Leroy Toro MD Dictated Date/Time: 03/22/20 6:55 pm Reviewed By: Leroy Toro MD Signed By: Leory Toro MD Signed Date/Time: 03/22/20 6:55 pm Transcribed By: SIXTO Transcribed Date/Time: 03/22/20 6:53 pm Exam Date Time Procedure Performing Provider Status 03/22/20 2:14 PM Modified Barium Swallow W/ Shea Haynes L ; Auth (Verified) Speech (Radio Notes:(Modified Barium Swallow W/ Speech (Radio) Reason For Exam: Dysphagia;DysphagiaRESULT: Modified Barium Swallow W/ Speech (Radio Modified Barium Swallow W/ Speech (Radio with speech pathologist. CLINICAL INDICATION: Reason: Dysphagia COMPARISON: None Technique: Lateral cine-videofluoroscopy was performed by Yumiko Horan CNP during the oral administration of various barium containing consistencies. Pulsed fluoroscopy time: 2.1 minutes Dose Area Product (DAP): 98.9 uGy*m2 Findings: Thin barium:Subglottic aspiration with cough. [place]:Silent subglottic aspiration. Applesauce:Flash laryngeal penetration. Honey:Flash laryngeal penetration. Pudding:No laryngeal penetration or subglottic aspiration. IMPRESSION: Aspiration and penetration as described.. For dietary concerns or recommendations, please refer to speech pathologist report. By undersigning and finalizing the report, the attending radiologist confirms he/she has personally reviewed and interpreted the images and agrees with the description of the findings. I have personally reviewed the images and I agree with this report. WSN: [id number] Ordering Physician: Mojgan Amaya Dictated By: Yumiko Horan NP Dictated Date/Time: 03/22/20 2:46 pm Reviewed By: Anthony Henderson MD Signed By: Anthony Henderson MD Signed Date/Time: 03/22/20 2:51 pm Transcribed By: SIXTO Transcribed Date/Time: 03/22/20 2:18 pm Exam Date Time Procedure Performing Provider Status 03/21/20 6:08 AM Chest Portable Grodzicka , Alesia; Auth (Verifie d) Notes:(Chest Portable) Reason For Exam: FeverRESULT: Chest Portable Chest Portable AP semiupright 5:32 AM Reason: Fever COMPARISON: 03/19/2020 FINDINGS: LINES AND TUBES: Tracheostomy tube tip the mid trachea 3.3 cm from the freedom.. LUNGS AND PLEURA: Low lung volumes. Mild bibasilar opacities, likely atelectasis. No pleural effusion. No pneumothorax. HEART, MEDIASTINUM AND ARPAN: Heart is normal in size. Normal mediastinal and hilar contour. BONES AND SOFT TISSUES: Partially visualized right clavicular fracture. A gastrostomy tube noted in place in the upper abdomen. IMPRESSION: Mild bibasilar opacities, likely atelectasis. No pleural effusion or pneumothorax. I have personally reviewed the images and I agree with this report. WSN: [id number] Ordering Physician: Linus Mayes Dictated By: Giovanna Cervantes MD Dictated Date/Time: 03/21/20 8:23 am Reviewed By: Tiana Lau MD Signed By: Tiana Lau MD Signed Date/Time: 03/21/20 8:28 am Transcribed By: SIXTO Transcribed Date/Time: 03/21/20 7:20 am Exam Date Time Procedure Performing Provider Status 03/19/20 5:57 AM Chest Portable Alfonzoa Alesia; Auth (Verifie d) Notes:(Chest Portable) Reason For Exam: PostopRESULT: Chest Portable Chest Portable AP upright 5:24 AM Indication: follow-up postop. COMPARISON: 03/18/2020. FINDINGS: Multiple round lucent opacities over the patient's are noted, likely due to overlying cooling blanket which obscures detail. LINES AND TUBES: Thoracostomy tube tip at the thoracic, unchanged. Left subclavian central venous catheter tip at the lower SVC. LUNGS AND PLEURA: Low lung volumes with unchanged hazy bilateral airspace opacities. No pleural effusion. No pneumothorax. HEART, MEDIASTINUM AND ARPAN: Heart is normal in size. Normal mediastinal and hilar contour. BONES AND SOFT TISSUES: No acute abnormality. IMPRESSION: No significant change. I have personally reviewed the images and I agree with this report. WSN: [id number] Ordering Physician: Kandace Miller Dictated By: Giovanna Cervantes MD Dictated Date/Time: 03/19/20 7:45 am Reviewed By: Clyde Godfrey MD Signed By: Clyde Godfery MD Signed Date/Time: 03/19/20 7:50 am Transcribed By: SIXTO Transcribed Date/Time: 03/19/20 7:16 am Exam Date Time Procedure Performing Provider Status 03/18/20 3:09 PM Chest Portable Anibal Amaya (Verified ) Notes:(Chest Portable) Reason For Exam: Follow-Up Pleural EffusionRESULT: Chest Portable Chest Portable Reason: Follow-Up Pleural Effusion; Clinical Question(s): Pleural Effusion; Order Comment: 1400 COMPARISON: Multiple priors dating back to 03/16/2020 FINDINGS: LINES AND TUBES: Tracheostomy tube is in stable position. Left subclavian central venous catheter terminates in the central SVC. LUNGS AND PLEURA: The lungs are hypoinflated. Bilateral lower lung airspace opacities are slightly improved compared with most recent prior. No pleural effusion. No pneumothorax. HEART, MEDIASTINUM AND ARPAN: Heart is normal in size. Normal mediastinal and hilar contour. BONES AND SOFT TISSUES: Right midshaft clavicular fracture again identified. IMPRESSION: Mildly improved aeration in both lung bases. WSN: [id number] Ordering Physician: Kandace Miller Dictated By: Danielle Franco MD Dictated Date/Time: 03/18/20 3:53 pm Reviewed By: Danielle Franco MD Signed By: Danielle Franco MD Signed Date/Time: 03/18/20 3:53 pm Transcribed By: SIXTO Transcribed Date/Time: 03/18/20 3:51 pm Exam Date Time Procedure Performing Provider Status 03/18/20 5:38 AM Chest Portable Leila Churchill (Verified) Notes:(Chest Portable) Reason For Exam: PneumothoraxRESULT: Chest Portable Chest Portable Reason: Pneumothorax; Clinical Question(s): Pneumothorax COMPARISON: Chest x-ray 03/17/2020 and multiple priors. FINDINGS: LINES AND TUBES: Tracheostomy tube terminates 2.0 cm above the freedom. Left subclavian approach central line crosses midline and terminating in the mid SVC. A chest tube projects over the right diaphragmatic dome and is unchanged. The left chest tube is no longer visualized. LUNGS AND PLEURA: Hazy opacities at both lung bases are unchanged. No pleural effusion. No pneumothorax. HEART, MEDIASTINUM AND ARPAN: Heart is normal in size. Normal mediastinal and hilar contour. BONES AND SOFT TISSUES: No acute abnormality. IMPRESSION: 1. Left chest tube is no longer visualized. No pneumothorax. 2. Unchanged bibasilar lung opacities represent atelectasis and/or consolidation. I have personally reviewed the images and I agree with this report. WSN: [id number] Ordering Physician: Linus Mayes Dictated By: Vitaly Snyder DO Dictated Date/Time: 03/18/20 11:06 a Reviewed By: Gage Guevara MD Signed By: Gage Guevara MD Signed Date/Time: 03/18/20 11:11 am Transcribed By: SIXTO Transcribed Date/Time: 03/18/20 10:35 am Exam Date Time Procedure Performing Provider Status 03/17/20 6:08 AM Chest Portable Betty Duff; Rona ([facility] ed) Notes:(Chest Portable) Reason For Exam: Tube PlacementRESULT: Chest Portable Chest Portable Reason: Tube Placement COMPARISON: Chest x-ray 03/16/2020 and multiple priors. FINDINGS: LINES AND TUBES: Tracheostomy tube terminates approximately 2.5 cm above the freedom. Left subclavian approach central line terminates in the lower SVC. One chest tube projects over the left mid lung and another projects over the right upper quadrant either in the upper abdomen or lower right pleural space. These are both unchanged. LUNGS AND PLEURA: Faint hazy opacities at the lung bases may represent atelectasis. Prominence of the perihilar markings with mild peribronchial cuffing likely represents mild pulmonary edema. No pleural effusion. No pneumothorax. HEART, MEDIASTINUM AND ARPAN: Heart is normal in size. Normal mediastinal and hilar contour. BONES AND SOFT TISSUES: Unchanged minimum overriding displaced right clavicular fracture. IMPRESSION: 1. Bilateral pulmonary edema and right basilar atelectasis. 2. Lines and tubes unchanged as above. No pneumothorax. I have personally reviewed the images and I agree with this report. WSN: [id number] Ordering Physician: José Wolff Dictated By: Vitaly Snyder DO Dictated Date/Time: 03/17/20 9:54 am Reviewed By: Gage Guevara MD Signed By: Gage Guevara MD Signed Date/Time: 03/17/20 9:59 am Transcribed By: SIXTO Transcribed Date/Time: 03/17/20 9:53 am Exam Date Time Procedure Performing Provider Status 03/16/20 3:15 PM Chest Portable hCarles Jerez (Verified) Notes:(Chest Portable) Reason For Exam: Tube PlacementRESULT: Chest Portable Chest Portable at 2:59 PM Reason: Tube Placement COMPARISON: Chest x-ray 03/16/2020 at 4:56 AM and multiple priors. FINDINGS: LINES AND TUBES: r tracheostomy tube terminates approximately 2.2 cm above the freedom. Left subclavian approach central line tip terminates at the cavoatrial junction isn't is unchanged. Left chest tube projects over the left mid lung. An additional tube projects over the right upper quadrant and it is unclear whether this represents an abdominal drain or chest tube. What appears to be a gastrostomy tube projects over the left upper abdomen. LUNGS AND PLEURA: Bilateral patchy hazy lung opacities are unchanged. No pleural effusion. No pneumothorax. HEART, MEDIASTINUM AND ARPAN: Heart is normal in size. Normal mediastinal and hilar contour. BONES AND SOFT TISSUES: Known displaced overriding right clavicular fracture is incompletely visualized. IMPRESSION: Bilateral patchy lung opacities are unchanged. Lines and tubes unchanged as outlined above. I have personally reviewed the images and I agree with this report. WSN: [id number] Ordering Physician: Migdalia Daley Dictated By: Vitaly Snyder DO Dictated Date/Time: 03/16/20 4:13 pm Reviewed By: Gage Guevara MD Signed By: Gage Guevara MD Signed Date/Time: 03/16/20 4:18 pm Transcribed By: SIXTO Transcribed Date/Time: 03/16/20 4:00 pm Exam Date Time Procedure Performing Provider Status 03/16/20 5:40 AM Chest Portable Giancarlo Stroud (Verified ) Notes:(Chest Portable) Reason For Exam: Tube PlacementRESULT: Chest Portable Chest Portable AP semiupright Reason: Tube Placement; Clinical Question(s): Pneumothorax COMPARISON: 03/15/2020. FINDINGS: LINES AND TUBES: Again demonstrated is a tracheostomy tube with its tip 3.6 cm above the freeodm. There is a stable left central line with its tip overlying the expected location of the cavoatrial junction. Again seen is a left chest tube. Again seen is a tube overlying the right upper abdomen. LUNGS AND PLEURA: There are persistent bilateral patchy hazy lung opacities which does not appear significantly changed. No pleural effusion. No pneumothorax. HEART, MEDIASTINUM AND ARPAN: Heart is normal in size. Normal mediastinal and hilar contour. BONES AND SOFT TISSUES: Again seen is a displaced right clavicle fracture. IMPRESSION: Stable abnormal chest radiograph. WSN: [id number] Ordering Physician: Linus Mayes Dictated By: Marti Carey MD Dictated Date/Time: 03/16/20 6:53 am Reviewed By: Marti Carey MD Signed By: Marti Carey MD Signed Date/Time: 03/16/20 6:53 am Transcribed By: SIXTO Transcribed Date/Time: 03/16/20 6:50 am Vital Signs Most recent to oldest 1 2 3 [Reference Range]: Height 157 cm 157 cm 157 cm (03/27/20 12:00 PM) (03/27/20 8:25 AM) (03/27/20 3:43 AM) Weight 47.2 kg 47.3 kg 49.6 kg (03/27/20 5:33 AM) (03/25/20 5:35 AM) (03/24/20 6:32 AM) Oxygen Saturation [94-100 %] 100 % 100 % 98 % (03/27/20 12:00 PM) (03/27/20 8:25 AM) (03/27/20 3:43 AM) Pulse Rate [55-90 bpm] 72 bpm 81 bpm 111 bpm (03/27/20 12:00 PM) (03/27/20 8:25 AM) *H* (03/27/20 3:43 AM) Body Mass Index [18.5-24.99] 20.89 (03/11/20 3:50 AM) Blood Pressure [90-138/55-84 117/69 mm Hg 115/66 mm Hg 127 /78 mm Hg mm Hg] (03/27/20 12:00 PM) (03/27/20 8:25 AM) (03/27/20 3:43 AM) Respiratory Rate [16-30 18 br/min 18 br/min 18 br/mi n br/min] (03/27/20 1:53 PM) (03/27/20 12:00 PM) (03/27/20 10:38 AM) Temperature [96.8-100.4 97.8 DegF 97.7 DegF 97.8 Deg F DegF] (03/27/20 12:00 PM) (03/27/20 8:25 AM) (03/27/20 3:43 AM) Liters per Minute 7 L/min 7 L/min 7 L/min (03/24/20 4:25 AM) (03/24/20 12:58 AM) (03/23/20 8: 00 PM) Mode of Delivery (Oxygen) Room air Room air Room a ir (03/27/20 12:00 PM) (03/27/20 8:25 AM) (03/27/20 3:43 AM) Blood pressure sites Arm, left Arm, left Arm, left (03/27/20 12:00 PM) (03/27/20 8:25 AM) (03/27/20 3:43 AM) Temperature Route Oral Oral Oral (03/27/20 12:00 PM) (03/27/20 8:25 AM) (03/27/20 3:43 AM) Dry Weight 50 kg 50 kg 50 kg (03/11/20 3:50 AM) (03/11/20 2:37 AM) (03/11/20 2:0 0 AM) Weight Obtained Via Standing scale Bed scale Bed scale (03/27/20 5:33 AM) (03/25/20 5:35 AM) (03/24/20 6:32 AM) Mobility assistance Independent Independent Total assist ance (03/22/20 10:00 AM) (03/22/20 8:00 AM) (03/20/20 12 :00 AM)
[2022-09-05 06:08] VITALS: BP 111/71; PULSE 80; RESP 18; TEMP 36.7; O2SAT 97
[2022-09-05 06:15] LABS: Urine Pregnancy NEGATIVE (NEGATIVE)
[2022-09-05 06:16] LABS: UPreg QC Valid YES
[2022-09-05 06:18] LABS: Amphetamine Screen Urine Not Detected (Not Detect); Barbiturates, Urine Not Detected (Not Detect); Benzodiazepines Screen Urine Not Detected (Not Detect); Cannabinoid Screen Urine POSITIVE (Not Detect); Cocaine Screen Urine Not Detected (Not Detect); Fentanyl, urine Not Detected (Not Detect); Opiate Screen Urine Not Detected (Not Detect); Phencyclidine Screen Urine Not Detected (Not Detect)
--- NOTE | 2022-09-05 06:19 | PC.NURSE ---
ZIGGY Dubon completed at this time.
[2022-09-05 06:20] LABS: COVID-19 Test Negative (Negative)
== END 2022-09-05 13:00 | disposition home or self-care (01) ==
PROVIDERS: Emergency Provider Emergency Medicine; PCP Hospitalist
DX: F10.920 Alcohol use, unspecified with intoxication, uncomplicated (principal); Y90.9 Presence of alcohol in blood, level not specified; R45.851 Suicidal ideations; R45.1 Restlessness and agitation; F17.210 Nicotine dependence, cigarettes, uncomplicated; F12.90 Cannabis use, unspecified, uncomplicated
CPT/HCPCS: 80307; 81025; 87635; 96372; 99283; 99285; J1200

== ENCOUNTER 2023-11-22 19:57 | Emergency (ER) | payer OTHER, SELFPAY ==
--- NOTE | ~2023-11-22 | XR_ITS ---
EXAMINATION: XR ANKLE, LEFT CLINICAL INFORMATION: Evaluate for fracture or dislocation COMPARISON: None available. TECHNIQUE: Two views of the left ankle. FINDINGS: Comminuted displaced spiral fracture of the distal fibula. Anterior dislocation of the distal tibia in relation to the talus. Vertically oriented fracture along the lateral malleolus/distal tibia. Disruption of ankle mortise along its superior margin. Joint spaces and alignment are otherwise maintained. Soft tissue swelling and deformity about the ankle. XR/XR ankle LT 2V IMPRESSION: 1. Comminuted displaced spiral fracture of the distal fibula. 2. Anterior dislocation of the distal tibia in relation to the talus. 3. Vertically oriented fracture along the lateral malleolus/distal tibia. 4. Disruption of ankle mortise along its superior margin. 5. Soft tissue swelling and deformity about the ankle.
--- NOTE | ~2023-11-22 | XR_ITS ---
EXAMINATION: XR ANKLE, LEFT CLINICAL INFORMATION: Rule out talar calcaneal subluxation COMPARISON: X-rays from earlier the same day TECHNIQUE: Lateral view of the FINDINGS: Normal-appearing talar calcaneal alignment. Minimally displaced posterior malleolar fracture. Comminuted oblique fracture of the distal fibular shaft. Soft tissue swelling and ankle joint effusion. Overlying cast or splint. XR/XR ankle LT 2V IMPRESSION: Normal-appearing talar calcaneal alignment.
--- NOTE | ~2023-11-22 | XR_ITS ---
EXAMINATION: XR ANKLE, LEFT CLINICAL INFORMATION: Post reduction COMPARISON: Previous x-ray from earlier the same day TECHNIQUE: AP, lateral, and mortise views of the left ankle. FINDINGS: Improved alignment of the trimalleolar ankle fracture with normal tibial talar alignment. There is an ankle joint effusion and diffuse soft tissue swelling. There is an overlying cast or splint. XR/XR ankle LT 2V IMPRESSION: Improved alignment of the trimalleolar ankle fracture.
--- NOTE | 2023-11-22 20:01 | ECG_ITS ---
Test Reason : FALL Blood Pressure : / mmHG Vent. Rate : 079 BPM Atrial Rate : 079 BPM P-R Int : 118 ms QRS Dur : 080 ms QT Int : 400 ms P-R-T Axes : 056 068 020 degrees QTc Int : 458 ms Sinus rhythm with marked sinus arrhythmia Otherwise normal ECG When compared with ECG of 09-JUN-2013 14:51, No significant changes seen Referred By: Lore Valencia Electronically Signed By:CIERRA CRISTOBAL MD
[2023-11-22 20:07] VITALS: BP 142/98; BP 86/69; PULSE 120; PULSE 81; RESP 18; TEMP 36.4; O2SAT 99; BMI 18.5
[2023-11-22] MEDS: 0.9 % Sodium Chloride 1,000 ML 999 ML IVCONT (20:20)
[2023-11-22] MEDS: Morphine Sulfate 4 MG/ML CARTRIDGE IVPUSH (20:20)
[2023-11-22 20:23] VITALS: BP 131/81; PULSE 84; RESP 20; O2SAT 97
[2023-11-22 20:30] LABS: MANUAL DIFF FLAG NO
[2023-11-22 20:31] LABS: Basophils Absolute Auto 0.1 X10*3/uL (0.0-0.2); Basophils Percent Auto 0.6 % (0-2); Eosinophils Absolute Auto 0.4 X10*3/uL (0.0-0.4); Eosinophils Percent Auto 3.3 % (0-4); Hemoglobin 14.7 g/dl (12.0-16.0); Imm Gran Abs Auto 0.03 X10*3/uL (0.00-0.03); Imm Gran Pct Auto 0.3 % (0.0-0.4); Lymphocytes Absolute Auto 3.6 X10*3/uL (1.2-4.9); Lymphocytes Percent Auto 33.3 % (20-40); Mean Corpuscular Hemoglobin 30.4 pg (27.0-33.0); Mean Corpuscular Volume 86.8 fL (80.0-98.0); Mean Platelet Volume 9.9 fL (9.4-12.3); Monocytes Absolute Auto 0.8 X10*3/uL (0.1-1.2); Monocytes Percent Auto 7.7 % (2-11); Neutrophils Percent Auto 54.8 % (45-73); Platelet Count 305 X10*3/uL (160-400); Red Blood Count 4.84 X10*6/uL (4.20-5.50); Red Cell Distribution Width 13.1 % (11.0-16.0); White Blood Count 10.9 X10*3/uL (4.8-10.8)
[2023-11-22 20:35] VITALS: BP 125/75; PULSE 102; RESP 16; O2SAT 99
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
[2023-11-22 20:48] LABS: Anion Gap 15 (12-20); Blood Urea Nitrogen 13 mg/dL (9-16); Carbon Dioxide 20 mmol/L (22-29); Chloride 110 mmol/L (96-108); Creatinine Clr Calc Pharmacy 84.3; Estimated Glomerular Filt Rate > 60; Potassium 3.5 mmol/L (3.3-5.1); Sodium 141 mmol/L (135-145)
[2023-11-22 20:49] LABS: Alanine Aminotransferase 12 U/L (0-31); Albumin Level 4.5 g/dL (3.5-5.0); Alkaline Phosphatase 48 U/L (39-117); Aspartate Amino Transferase 13 U/L (5-31); Bilirubin Direct 0.3 mg/dL (0.0-0.5); Bilirubin Total 1.3 mg/dL (0.0-1.0); Calcium 9.3 mg/dL (8.4-10.2); Glucose Random 96 mg/dL (60-115); Total Protein 7.2 g/dL (6.5-8.0)
[2023-11-22 20:56] VITALS: BP 129/93; PULSE 107; RESP 14
[2023-11-22] MEDS: ondansetron HCL 4 MG/2 ML VIAL IVPUSH (20:56)
[2023-11-22 21:11] VITALS: BP 150/93; PULSE 81; RESP 24; O2SAT 99
[2023-11-22] MEDS: Ketamine HCl/NS 50 MG/5 ML SYRINGE 100 MG IVPUSH (21:11)
--- NOTE | 2023-11-22 22:31 | PC.NURSE ---
pt ambulated to bathroom on crutches with standby assist, tolerated well. provider notified.
--- NOTE | 2023-11-22 23:04 | PC.NURSE ---
hand off to sammy king
== END 2023-11-22 23:44 | disposition home or self-care (01) ==
PROVIDERS: Emergency Medicine; Emergency Provider Student in an Organized Health Care Education/Training Program
DX: S82.842A Displaced bimalleolar fracture of left lower leg, initial encounter for closed fracture (principal); S93.05XA Dislocation of left ankle joint, initial encounter; W00.1XXA Fall from stairs and steps due to ice and snow, initial encounter; Y93.89 Activity, other specified; Y92.014 Private driveway to single-family (private) house as the place of occurrence of the external cause; Y99.8 Other external cause status; M25.572 Pain in left ankle and joints of left foot; M25.472 Effusion, left ankle
CPT/HCPCS: 36415; 73600; 80048; 80076; 85025; 93005; 96361; 96374; 96375; 99284; 99285; J2270; J2405

== ENCOUNTER → 2023-11-22 20:01 | Outpatient (BNV) | payer OTHER, SELFPAY | PROVIDERS: Emergency Provider Student in an Organized Health Care Education/Training Program; Visit Provider Internal Medicine Cardiovascular Disease | DX: I49.8 Other specified cardiac arrhythmias (principal) | CPT/HCPCS: 93010 ==

== ENCOUNTER 2023-11-26 09:15 | Outpatient (AMB) | payer OTHER, SELFPAY ==
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
[2023-11-26 09:22] VITALS: BP 110/70; PULSE 82; O2SAT 98; BMI 19.9
== END 2023-11-26 10:04 | disposition home or self-care (01) ==
PROVIDERS: Visit Provider Nurse Practitioner Family
DX: S82.832A Other fracture of upper and lower end of left fibula, initial encounter for closed fracture (principal)
CPT/HCPCS: 99215

== ENCOUNTER 2023-11-26 10:46 | Outpatient (REF) | payer OTHER, SELFPAY ==
--- NOTE | ~2023-11-26 | XR_ITS ---
EXAMINATION: XR ANKLE, LEFT CLINICAL INFORMATION: Left ankle pain. Fracture. COMPARISON: Left ankle radiographs dated 11/22/2023. TECHNIQUE: AP, lateral, and mortise views of the left ankle. FINDINGS: Redemonstration of a trimalleolar fracture in near anatomic alignment with an overlying splint. No significant new bone/callus formation across the fracture lines. The ankle mortise appears well aligned. No concerning lytic or blastic osseous lesion. No abnormal soft tissue calcification. XR/XR ankle LT min 3V IMPRESSION: Trimalleolar fracture in near anatomic alignment with an overlying splint. No significant new bone/callus formation.
== END 2023-11-26 10:47 | disposition home or self-care (01) ==
LOC: HO.HOSX 10:46
PROVIDERS: Visit Provider Physician Assistant
DX: M25.572 Pain in left ankle and joints of left foot (principal); S82.852A Displaced trimalleolar fracture of left lower leg, initial encounter for closed fracture; S93.05XA Dislocation of left ankle joint, initial encounter; W00.0XXA Fall on same level due to ice and snow, initial encounter; Y93.E9 Activity, other interior property and clothing maintenance; Y92.9 Unspecified place or not applicable; Y99.9 Unspecified external cause status
CPT/HCPCS: 73610; 99202

== ENCOUNTER 2023-11-26 10:46 | Outpatient (AMB) | payer OTHER, SELFPAY ==
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
== END 2023-11-26 11:40 | disposition home or self-care (01) ==
PROVIDERS: Visit Provider Physician Assistant
DX: S82.852A Displaced trimalleolar fracture of left lower leg, initial encounter for closed fracture (principal); S93.05XA Dislocation of left ankle joint, initial encounter
CPT/HCPCS: 27816; 99204

== ENCOUNTER 2023-12-01 09:22 | Day surgery (SDC) | payer OTHER, SELFPAY ==
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
[2023-12-01] VITALS (8 sets, daily range): BP systolic 114–127; BP diastolic 55–82; PULSE 89–119; RESP 14–23; TEMP 37.1–37.4; O2SAT 98–100; BMI 18.9
--- NOTE | ~2023-12-01 | FL_ITS ---
EXAMINATION: XR FLUOROSCOPY WITH IMAGES CLINICAL INFORMATION: ORIF COMPARISON: 11/26/2023 TECHNIQUE: Fluoroscopy Supervised By: Gabi. Fluoroscopy Time: 0.6 seconds. Cumulative Dose: 1.28 mGy. Images: 4. FINDINGS: Intraoperative fluoroscopy provided, plate and multiple screws placed across fracture line of the distal fibula, 2 threaded screws through the medial malleolus. Anatomic alignments restored. FL/FL guidance in OR IMPRESSION: Intraoperative fluoroscopy for ORIF bimalleolar fractures.
[2023-12-01 09:44] LABS: UPreg QC Valid YES; Urine Pregnancy NEGATIVE (NEGATIVE)
[2023-12-01] MEDS: Lactated Ringers 1,000 ML 100 ML IVCONT (10:03)
--- NOTE | 2023-12-01 14:31 | MHC.SHP ---
Pre-Procedural Eval Section A - 24 Hr Update-Section A only Date of Service: 12/01/23 The patient is an INPATIENT: No Changes since office visit: No Cold of Flu in the past 2 weeks, No New Medical Problems, No Changes in Medication and No Patient answered all questions The patient has been examined within 24 hours of the surgical procedure. The History & Physical has been completed within 30 days and I have reviewed it.: Yes Section B - Complete if H&P > 30 days Chief Complaint: Displaced trimalleolar fracture of left lower leg, Allergies: Allergies Allergy/AdvReac Type Severity Reaction Status Date / Time No Known Allergies Allergy Verified 12/01/23 09:46 Plan I have reviewed the history and physical and performed a pertinent physical examination on my patient. No changes have occurred unless specified. Time Spent With Patient Time: Total time managing care of this patient today ____ minutes.
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
--- NOTE | 2023-12-01 16:07 | P.BOP_ITS ---
Brief Operative Note Date of Service: 12/01/23 Pre-op diagnosis: left ankle thor Post-op diagnosis: same Procedure: ORIF bimalleolar ankle fracture left Implants: [place] Surgeon: Pedrito Matta MD Anesthesia: GETA Was an Mail Carrier Technician used for this Procedure?: Yes Mail Carrier Technician: Torri Ashley Estimated blood loss (mL): 5 Tourniquet time (min): 56 IV fluids (mL): 800 Pathology: none sent Condition: stable Disposition: PACU
--- NOTE | 2023-12-08 07:18 | P.OP_ITS ---
Operative Note Operative Note Date of Service: 12/01/23 Narrative: Date of Service: 12/01/23 Pre-op diagnosis: left ankle thor Post-op diagnosis: same Procedure: ORIF bimalleolar ankle fracture left Implants: [place] Surgeon: Pedrito Matta MD Anesthesia: GETA Was an Medical Records Auditor used for this Procedure?: Yes Medical Records Auditor: Torri Ashley Estimated blood loss (mL): 5 Tourniquet time (min): 56 IV fluids (mL): 800 Pathology: none sent Condition: stable Disposition: PACU Procedure in detail: Patient was brought to the operating room and placed supine on the operative table. All bony prominences were well padded and a time-out was called to identify proper site proper procedure proper surgeon. IV antibiotics per weight were administered. I began by exsanguinating limb is slightly tourniquet to 300 mm Hg. I then made a standard posterolateral incision over the fibula. Full- thickness flaps were taken down to the fibular shaft and distal fibula. The fracture was identified and cleaned with a combination of curette, rongeur and irrigation. A lobster claw was used to provisionally reduce the fracture and a lag screw was placed from A to P to provisionally reduce the fracture. There was a large butterfly fragment that was not entirely reduceable. A 6 hole distal fibular locking plate was applied using standard AO technique. Biplanar fluoroscopy was used to confirm hardware position and fracture reduction. Once I was satisfied that both of these were acceptable I irrigated copiously and turned my attention to the medial side. This was an extra-articular medial malleolus fracture that exteded proximally and obliquely. In order to prevent any displacement 2 threaded K-wires were then placed from distal to proximal and perpendicular to the fracture. Biplanar fluoroscopy was used to confirm positioning and then they were overdrilled and 2 4.0 partially-threaded cannulated cancellous screws were placed across the fracture. I was satisfied with the position and the fracture reduction based on biplanar fluoroscopy. This syndesmosis was tested using external rotation test and was found to be stable. Therefore all instrumentation was removed and copious irrigation was performed. Absorbable suture and trino were used for closure and the patient was placed into sterile dressings and a well-padded posterior splint. Tourniquet was let down and the patient was extubated brought to recovery room in stable condition there were no known complications.
== END 2023-12-01 17:24 | disposition home or self-care (01) ==
LOC: HO.SSS 09:24
PROVIDERS: Nurse Practitioner; Visit Provider Orthopaedic Surgery
PROC: (CPT 27814; principal; 2023-12-01 15:10)
DX: S82.842A Displaced bimalleolar fracture of left lower leg, initial encounter for closed fracture (principal); R20.0 Anesthesia of skin; W00.1XXA Fall from stairs and steps due to ice and snow, initial encounter; Y93.89 Activity, other specified; Y92.099 Unspecified place in other non-institutional residence as the place of occurrence of the external cause; Y99.8 Other external cause status
CPT/HCPCS: 27814; 81025; C1713; J0690; J1100; J2250; J2405; J2704; J2795; J3010

== ENCOUNTER → 2023-12-01 09:22 | Outpatient (BNV) | payer OTHER, SELFPAY | PROVIDERS: Visit Provider Orthopaedic Surgery | DX: S82.842A Displaced bimalleolar fracture of left lower leg, initial encounter for closed fracture (principal) | CPT/HCPCS: 27814 ==

== ENCOUNTER 2023-12-09 11:37 | Outpatient (AMB) | payer OTHER, SELFPAY ==
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
[2023-12-09 11:41] VITALS: BMI 18.9
== END 2023-12-09 12:03 | disposition home or self-care (01) ==
PROVIDERS: Visit Provider Physician Assistant
DX: S82.842A Displaced bimalleolar fracture of left lower leg, initial encounter for closed fracture (principal); S93.05XD Dislocation of left ankle joint, subsequent encounter; Z87.81 Personal history of (healed) traumatic fracture
CPT/HCPCS: 29515; 99024

== ENCOUNTER → 2023-12-09 11:37 | Outpatient (BNVA) | payer OTHER, SELFPAY | PROVIDERS: Visit Provider Physician Assistant | DX: S82.852D Displaced trimalleolar fracture of left lower leg, subsequent encounter for closed fracture with routine healing (principal); S93.05XD Dislocation of left ankle joint, subsequent encounter; Z98.890 Other specified postprocedural states; Z87.81 Personal history of (healed) traumatic fracture | CPT/HCPCS: 29515; 99212 ==

== ENCOUNTER 2023-12-17 09:03 | Outpatient (REF) | payer OTHER, SELFPAY ==
--- NOTE | ~2023-12-17 | XR_ITS ---
EXAMINATION: XR ANKLE, LEFT CLINICAL INFORMATION: Pain in unspecified ankle and joints of unspecified foot. COMPARISON: Fluoroscopic guidance in OR images of 12/01/2023. Left ankle radiographs of 11/26/2023. TECHNIQUE: AP, lateral, and mortise views of the left ankle. FINDINGS: Status post ORIF of trimalleolar fracture with plate and multiple screws traversing fracture of the distal fibula and 2 threaded screws traversing fracture of the medial malleolus. Diffuse soft tissue swelling and joint effusion. Surgical trino present medially and laterally. Alignment is improved. XR/XR ankle LT min 3V IMPRESSION: Status post ORIF of trimalleolar fracture .
== END 2023-12-17 09:04 | disposition home or self-care (01) ==
LOC: HO.HOSX 09:03
PROVIDERS: Visit Provider Physician Assistant
DX: M25.572 Pain in left ankle and joints of left foot (principal)
CPT/HCPCS: 29405; 73610; 99212

== ENCOUNTER 2023-12-17 10:58 | Outpatient (AMB) | payer OTHER, SELFPAY ==
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
[2023-12-17 11:06] VITALS: BMI 18.9
== END 2023-12-17 12:10 | disposition home or self-care (01) ==
PROVIDERS: Visit Provider Physician Assistant
DX: S82.852A Displaced trimalleolar fracture of left lower leg, initial encounter for closed fracture (principal); Z87.81 Personal history of (healed) traumatic fracture; S93.05XD Dislocation of left ankle joint, subsequent encounter
CPT/HCPCS: 29405; 99024

== ENCOUNTER 2023-12-27 11:22 | Outpatient (REF) | payer OTHER, SELFPAY | END 2023-12-27 11:23 | disposition home or self-care (01) | LOC: HO.HOSX 11:22 | PROVIDERS: Visit Provider Physician Assistant | DX: Z13.89 Encounter for screening for other disorder (principal) ==

== ENCOUNTER 2024-01-03 09:54 | Outpatient (REF) | payer OTHER, SELFPAY ==
--- NOTE | ~2024-01-03 | XR_ITS ---
EXAMINATION: XR ankle LT min 3V CLINICAL INFORMATION: Reason for Exam M25.572 - Pain in left ankle and joints of left foot COMPARISON: 12/17/2023 TECHNIQUE: AP, lateral, and oblique views of the left foot FINDINGS: * Status post alanna of bimalleolar fracture without evidence of hardware complication. Ankle mortise is preserved. There is posterior displacement of the distal fibular comminuted fragment. * Joint spaces are maintained without significant degenerative change. * No soft tissue abnormality. XR/XR ankle LT min 3V IMPRESSION: Status post bimalleolar fracture without evidence of hardware complication. There is posterior displacement of the distal fibular comminuted fragment.
== END 2024-01-03 09:55 | disposition home or self-care (01) ==
LOC: HO.HOSX 09:54
PROVIDERS: Visit Provider Physician Assistant
DX: M25.572 Pain in left ankle and joints of left foot (principal); S82.852D Displaced trimalleolar fracture of left lower leg, subsequent encounter for closed fracture with routine healing; S93.05XD Dislocation of left ankle joint, subsequent encounter; X58.XXXD Exposure to other specified factors, subsequent encounter; Z98.890 Other specified postprocedural states
CPT/HCPCS: 29405; 73610; 99212

== ENCOUNTER 2024-01-03 15:00 | Outpatient (AMB) | payer OTHER, SELFPAY ==
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
[2024-01-03 15:29] VITALS: BMI 18.9
== END 2024-01-03 17:44 | disposition home or self-care (01) ==
PROVIDERS: Visit Provider Physician Assistant
DX: S82.842A Displaced bimalleolar fracture of left lower leg, initial encounter for closed fracture (principal); Z87.81 Personal history of (healed) traumatic fracture; S93.05XD Dislocation of left ankle joint, subsequent encounter
CPT/HCPCS: 29405; 99024

== ENCOUNTER 2024-01-17 10:57 | Outpatient (REF) | payer OTHER, SELFPAY ==
--- NOTE | ~2024-01-17 | XR_ITS ---
EXAMINATION: XR ANKLE, LEFT CLINICAL INFORMATION: Pain. COMPARISON: None available. TECHNIQUE: AP, lateral, and mortise views of the left ankle. FINDINGS: Oblique, displaced fractures of the bilateral malleoli noted, in stable alignment. A stable, somewhat displaced butterfly comminution fragment is noted at the distal fibular fracture site, best appreciated on the oblique view. Intact orthopedic screws are applied to the medial malleolus, and an intact fixator plate and fixator screws are applied to the lateral malleolus. No hardware failure or loosening is seen. The ankle mortise is intact. There is no left ankle joint effusion. Boehler's angle is normal. There is no calcaneal spur. No focal soft tissue swelling, gas or foreign body is seen. XR/XR ankle LT min 3V IMPRESSION: There is stable alignment of bimalleolar fracture fragments status-post ORIF. No hardware failure or loosening is seen.
== END 2024-01-17 10:58 | disposition home or self-care (01) ==
LOC: HO.HOSX 10:57
PROVIDERS: Visit Provider Physician Assistant
DX: M25.572 Pain in left ankle and joints of left foot (principal); Z98.890 Other specified postprocedural states; Z87.81 Personal history of (healed) traumatic fracture
CPT/HCPCS: 73610; 99212

== ENCOUNTER 2024-01-17 13:37 | Outpatient (AMB) | payer OTHER, SELFPAY ==
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
[2024-01-17 14:01] VITALS: BMI 18.9
== END 2024-01-17 14:44 | disposition home or self-care (01) ==
PROVIDERS: Visit Provider Physician Assistant
DX: Z98.890 Other specified postprocedural states (principal); Z87.81 Personal history of (healed) traumatic fracture
CPT/HCPCS: 99024

== ENCOUNTER 2024-02-21 08:36 | Outpatient (REF) | payer OTHER, SELFPAY ==
--- NOTE | ~2024-02-21 | XR_ITS ---
EXAMINATION: XR ANKLE, LEFT CLINICAL INFORMATION: Pain in left ankle COMPARISON: 01/17/2024, 01/03/2024, 11/26/2023. TECHNIQUE: AP, lateral, and mortise views of the left ankle. FINDINGS: There is status post fixation of bilateral malleolar fracture with 2 compression reveals medially and compression plate and multiple screws laterally. Fragments are anatomically aligned fracture lines are still visualized. There is still mildly displaced posterior butterfly comminuted fragment from the fibula identical to the previous examination the position of hardware is intact. Ankle mortise is maintained. Soft tissues are unremarkable. XR/XR ankle LT min 3V IMPRESSION: No interval change in appearance of comminuted bimalleolar fracture with ORIF placement in stable position of fragments and hardware.
== END 2024-02-21 08:37 | disposition home or self-care (01) ==
LOC: HO.HOSX 08:36
PROVIDERS: Visit Provider Physician Assistant
DX: M25.572 Pain in left ankle and joints of left foot (principal)
CPT/HCPCS: 73610; 99212

== ENCOUNTER 2024-02-21 13:37 | Outpatient (AMB) | payer OTHER, SELFPAY ==
[2024-02-21 13:46] VITALS: BMI 19.8
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
== END 2024-02-21 15:01 | disposition home or self-care (01) ==
PROVIDERS: Visit Provider Physician Assistant
DX: Z98.890 Other specified postprocedural states (principal); Z87.81 Personal history of (healed) traumatic fracture
CPT/HCPCS: 99024

== ENCOUNTER 2024-03-27 11:00 | Outpatient (RCR) | payer OTHER, SELFPAY ==
--- NOTE | 2024-02-01 13:31 | MHC.PT.EP ---
[facility] [place] Office [place] Office [place] Office [address] Mercy Gannon [address] [phone] F: [phone] F: [phone] F: [phone] F: [phone] Physical Therapy Plan of Care Date of Evaluation: 02/01/24 Date of Surgery: 12/01/23 Diagnosis: S/P ORIF LEFT bimalleolar ankle fracture Assessment: 28 YO FEMALE REF TO PT S/P 12/01/23 ORIF LEFT bimalleolar ankle fracture (SUSTAINED 11/22/23)-> SHE HAS BEEN CLEARED BY ORTHO FOR WBAT IN LEFT BOOT AT ALL TIMES OF 01/17/24 (OK TO REMOVE FOR PT AND HYGIENE. SHE RESIDES IN A 2ND FLOOR APT W HER 4 YO DTR. OBJECTIVELY, THE Pt HAS DECR ANKLE ROM, ALTERED GAIT W Lt BOOT AND 1 CRUTCH, Lt LE STRENGTH DEFICITS, DECR SCAR MOBILITY, AND INTERMITTENT PAIN. THE CURRENT ORDERS INCLUDE TO WEAR BOOT ALL THE TIME; she will begin physical therapy to work on gentle range of motion and weight-bearing with a boot at all times. She can remove the boot for exercises and hygiene. Like to see her back in 5 weeks with x-rays sooner . THE Pt IS MOTIVATED FOR PT, RTW ( A REGISTERED CLIENT ASSOCIATE), AND GRAD RESUMING REG ADLs / BOOT WEAN ONCE CLEARED BY ORTHO. Frequency and Duration: The patient will be seen 2 x WK x 6 WKS Short Term Goals: *DECR Lt ANKLE PAIN TO 2-3/10 *INCREASE ROM Lt KNEE/ ANKLE/ HIP *INITIATE HEP, IMPROVE Lt LE PROPRIOCEPTION *IMPROVE EFFICIENCY OF GAIT MECHANICS ON LEVEL AND UNEVEN GROUND STAIRS Jail Goals: *Pt INDEP W HEP AND SELF-SX MGMT TECHN *Pt RESUME REG ADLs/ FITNESS, IMPROVED LEFI ( ) *ENHANCE Lt LE/ LUMBOPELVIC STRENGTH-> AT LEAST BY 1 GRADE *LEFT SLS x 10 SEC Treatment Plan: Modalities to reduce pain, spasms and effusion. Manual therapy to restore motion and function. Therapeutic exercise to improve strength and flexibility. Neuromuscular re-education for posture and balance. Therapeutic activities to return to functional activities of daily living. Electronically signed by: COLE MAURICIO PT Please sign and return to therapist. Thank you for your referral.
--- NOTE | 2024-05-23 14:57 | MHC.PT.DC ---
[facility] [place] [facility] [place] [facility] [place] [facility] [address] [facility] Gannon [address] [phone] F: [phone] F: [phone] F: [phone] F: [phone] Physical Therapy Discharge Report Diagnosis: S/P ORIF LEFT bimalleolar ankle fracture Date of Surgery: 12/01/23 Date of Evaluation: 02/01/24 Date of Discharge: 05/23/24 Treatments to Date: 9 Cancellations to Date: 1 No Shows to Date: 5 Discharge Status: Patient Elected to Stop Visit Non-compliance Discharge Summary: ROSETTE DISPLAYED IMPROVED, MORE EFFICIENT GAIT MECH AND Lt ANKLE DF AFTER PERF STRETCHING EXER AND UTILIZING HILL PGM ON TREADMILL-> I REINFORCED IMPORTANCE OF HEP COMPLIANCY TO REDUCE STIFFNESS AND IMPROVE FUNCTION- SHE DENIED ANY Lt ANKLE PAIN W THE ABOVE TASKS, PERF W/O LACE-UP AND W CLOSE SUPERVISION- ON THE LAST ATTENDED PT VISIT, THE Pt NOTED SHE HAD AN ORTHO F/U LATER THAT DAY- SHE HAS NOT ATTENDED ANY FURTHER SCHED PT APPTS AND , NOTED ABOVE, SHE HAD DECR ATTENDANCE TO SCHED APPTS. Electronically signed by: COLE MAURICIO,PT Please sign and return to therapist. Thank you for your referral.
== END 2024-05-23 14:57 | disposition home or self-care (01) ==
LOC: HO.PT 11:00
PROVIDERS: Visit Provider Physician Assistant
DX: Z98.890 Other specified postprocedural states (principal); Z87.81 Personal history of (healed) traumatic fracture
CPT/HCPCS: 97110; 97112; 97116; 97140; 97162; 97530

== ENCOUNTER 2024-03-27 12:38 | Outpatient (REF) | payer OTHER, SELFPAY ==
--- NOTE | ~2024-03-27 | XR_ITS ---
EXAMINATION: XR ANKLE, LEFT CLINICAL INFORMATION: Pain in left ankle and joints of left foot COMPARISON: Left ankle 02/21/2004 TECHNIQUE: AP, lateral, and mortise views of the left ankle. FINDINGS: The patient is status post fixation of comminuted bilateral malleolar fractures with compression plate and multiple screws over the distal fibula and 2 oblique screws over the medial malleolus. No change in position or alignment of the fracture fragments. Fracture lines are still evident. The ankle mortise is well-maintained. No hardware complication. XR/XR ankle LT min 3V IMPRESSION: Status post fixation of comminuted bilateral malleolar fractures without evidence of hardware complication. No significant interval change.
== END 2024-03-27 12:39 | disposition home or self-care (01) ==
LOC: HO.HOSX 12:38
PROVIDERS: Visit Provider Physician Assistant
DX: M25.572 Pain in left ankle and joints of left foot (principal)
CPT/HCPCS: 73610

== ENCOUNTER 2024-04-10 12:59 | Outpatient (REF) | payer OTHER, SELFPAY | END 2024-04-10 13:00 | disposition home or self-care (01) | LOC: HO.HOSX 12:59 | PROVIDERS: Visit Provider Physician Assistant | DX: Z13.89 Encounter for screening for other disorder (principal) ==

== ENCOUNTER 2024-05-03 23:20 | Emergency (ER) | payer OTHER, SELFPAY ==
[2024-05-03 23:55] VITALS: BP 122/79; PULSE 113; RESP 17; TEMP 36.9; O2SAT 98; BMI 19.3
[2024-05-04 01:11] LABS: Appearance Urine Clear; Color Urine Yellow; Glucose Urine UA Negative (Negative); Leukocyte Esterase Urine Negative (Negative); Nitrite Urine Negative (Negative); Specific Gravity - Urine 1.015 (1.005-1.025); Urine Blood Negative (Negative); Urine Ketones Negative (Negative); Urine Protein Negative (Neg-Trace)
[2024-05-04 01:12] LABS: UPreg QC Valid YES; Urine Pregnancy NEGATIVE (NEGATIVE)
[2024-05-04 01:16] LABS: Bacteria Urine None Seen (None Seen); Hyaline Casts Urine 0-2 /LPF (0-2); RBC Urine 0-2 /HPF (0-2); Squamous Epithelial Cell Urine 0-2 /HPF (0-2); WBC Urine 0-5 /HPF (0-5)
[2024-05-04 01:49] LABS: MANUAL DIFF FLAG NO
[2024-05-04 01:51] LABS: Basophils Absolute Auto 0.1 X10*3/uL (0.0-0.2); Basophils Percent Auto 0.7 % (0-2); Eosinophils Absolute Auto 0.4 X10*3/uL (0.0-0.4); Hematocrit 39.5 % (37.0-47.0); Imm Gran Abs Auto 0.01 X10*3/uL (0.00-0.03); Imm Gran Pct Auto 0.1 % (0.0-0.4); Lymphocytes Absolute Auto 2.9 X10*3/uL (1.2-4.9); Lymphocytes Percent Auto 33.4 % (20-40); Mean Corpuscular HGB Conc 35.4 g/dl (31.0-35.0); Mean Corpuscular Hemoglobin 30.6 pg (27.0-33.0); Mean Corpuscular Volume 86.4 fL (80.0-98.0); Mean Platelet Volume 9.8 fL (9.4-12.3); Monocytes Absolute Auto 0.8 X10*3/uL (0.1-1.2); Monocytes Percent Auto 9.5 % (2-11); Neutrophils Absolute Auto 4.6 x10*3/uL (2.0-8.3); Neutrophils Percent Auto 52.3 % (45-73); Platelet Count 256 X10*3/uL (160-400); Red Blood Count 4.57 X10*6/uL (4.20-5.50); Red Cell Distribution Width 13.2 % (11.0-16.0); White Blood Count 8.7 X10*3/uL (4.8-10.8)
[2024-05-04 02:05] LABS: Alanine Aminotransferase 12 U/L (0-31); Albumin Level 4.1 g/dL (3.5-5.0); Alkaline Phosphatase 50 U/L (39-117); Anion Gap 11 (12-20); Aspartate Amino Transferase 11 U/L (5-31); Bilirubin Total 0.7 mg/dL (0.0-1.0); Blood Urea Nitrogen 14 mg/dL (9-16); Calcium 9.3 mg/dL (8.4-10.2); Carbon Dioxide 24 mmol/L (22-29); Chloride 108 mmol/L (96-108); Creatinine Clr Calc Pharmacy 86.7; Estimated Glomerular Filt Rate > 60; Glucose Random 105 mg/dL (60-115); Potassium 4.1 mmol/L (3.3-5.1); Sodium 139 mmol/L (135-145); Total Protein 6.5 g/dL (6.5-8.0)
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
[2024-05-04 09:01] VITALS: BP 120/60; PULSE 70; RESP 18; TEMP 36.8; O2SAT 99
--- NOTE | 2024-05-04 09:34 | MHC.CARE ---
Pt is a 28 year old, French speaking, single female. She was A&O x4. She appeared younger than her stated age. At the time of the consult, she laid down in bed wearing a hospital gown. She appeared disheveled and her hair was unkempt. Her build was thin. ?Throughout the consult, pt was engaged and help seeking, eye contact was intermittent, and speech edith, volume, and tone were within normal limits. 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 Pt reported her appetite is normal and she is hungry often but meals are reportedly intermittent due to affordability of food. Pt reported her current mood as anxious and she was tearful at times while meeting with clinician. Pt affect was congruent with mood. She denied current or history of AH/VH and did not appear to be responding to any internal stimuli while meeting with clinician. Pt also denied current or history of SI/HI, and denied history of SIB. Pt appears to have fair insight and poor judgment. Due to pt disclosing that she is domiciled living on the street with her 2 year old daughter,? clinician filed a 51 a with DCF. Pt stated she does not have history of endorsing SI/HI or any attempts. She reported she does not have any community providers currently, she denied having access to a 911 emergency services dispatcher, individual therapist, PCP in the community. Clinician consulted with ER BLANKA March and the disposition was referral to [facility] services through [facility]. Pt was made aware of 51A filing and declined referral or lyft ride to [facility].?
--- NOTE | 2024-05-04 10:03 | MHC.CARE ---
Clinician called [facility] area office at 1000. Clinician spoke with [facility] screener Felicia to file the 51A. Clinician also faxed written report to [facility] office at .
--- NOTE | 2024-05-04 10:27 | MHC.CARE ---
Recieved confirmation that faxed 51a to [facility] was faxed successfully.
--- NOTE | 2024-05-04 12:46 | MHC.CARE ---
Pt placed on alert with [facility] for 7 days.
== END 2024-05-04 09:02 | disposition home or self-care (01) ==
PROVIDERS: Emergency Provider Emergency Medicine
DX: F32.A Depression, unspecified (principal); Z59.00 Homelessness unspecified; F17.210 Nicotine dependence, cigarettes, uncomplicated; F12.90 Cannabis use, unspecified, uncomplicated
CPT/HCPCS: 36415; 80053; 81001; 81025; 85025; 99284